=== PATIENT | male | born 2000 | race Two or more races ===

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

== ENCOUNTER 2019-01-16 21:57 | Emergency (ER) | payer MEDICAID ==
[~2019-01-16] VITALS: Ht 180.3 cm; Wt 74.8 kg
[2019-01-16 22:38] VITALS: BP 137/80
--- NOTE | 2019-01-16 22:40 | NUR ---
PT BIB MOTHER C/C LEFT EAR ACHE AND FLU LIKE SYMPTOMS X 2 DAYS. PT C/O DIMINSHED HEARING HEARING IN LEFT EAR. PT AOX4. NAD NOTED. RESP EVEN AND UNLABORED. PT IN BED 12 WITH MOTHER AT BEDSIDE. WILL CONTINUE TO MONITOR.
== END 2019-01-16 23:47 | disposition home or self-care (01) ==
LOC: ER 22:01
DX: J06.9 Acute upper respiratory infection, unspecified (principal); H66.92 Otitis media, unspecified, left ear
CPT/HCPCS: 87804 ×2; 99283; A4606; 87400

== ENCOUNTER 2022-06-14 22:54 | Emergency (ER) | payer MEDICAID, OTHER ==
[~2022-06-14] VITALS: Ht 180.3 cm; Wt 73.9 kg
--- NOTE | 2022-06-15 00:21 | NUR ---
BIBS FOR C/O L ANKLE PAIN S/P HE LANDED ON IT. PT A/OX4. TOLERATING R/A WELL WITH NO SOB; RESP EVEN AND NON LABORED. AMBULATORY. SAFETY MEASURES IN PLACE.
--- NOTE | 2022-06-15 00:54 | NUR ---
[employer] MANA[employer] AT PT'S BEDSIDE
--- NOTE | 2022-06-15 01:15 | NUR ---
DR. THELMA TRUJILLO AT PT'S BEDSIDE FOR WOUND CARE; APPLYING ROBBY WRAP TO LEFT ANKLE
--- NOTE | 2022-06-15 01:25 | NUR ---
Patient discharged to home in stable condition. Written and verbal after care instructions given. Patient verbalizes understanding of instruction. Pt ambulatory with a steady gait with crutches
[2022-06-15 01:26] VITALS: BP 121/71
== END 2022-06-15 01:27 | disposition home or self-care (01) ==
LOC: ER 22:58
DX: S93.492A Sprain of other ligament of left ankle, initial encounter (principal); X50.1XXA Overexertion from prolonged static or awkward postures, initial encounter; Y93.01 Activity, walking, marching and hiking; Y92.89 Other specified places as the place of occurrence of the external cause; Y99.8 Other external cause status
CPT/HCPCS: 73610-TC

== ENCOUNTER 2024-04-02 21:18 | Emergency (ER) | payer OTHER ==
[~2024-04-02] VITALS: Ht 180.3 cm; Wt 78.9 kg
[2024-04-02 22:16] VITALS: BP 158/65; TEMP 98.3; O2SAT 98
[2024-04-03] MEDS ORDERED: IBUP-1955 PO (00:16)
[2024-04-03] MEDS ORDERED: AMOX875T2 PO (00:16)
== END 2024-04-03 00:21 | disposition home or self-care (01) ==
LOC: ER 21:19
DX: H66.92 Otitis media, unspecified, left ear (principal); H92.03 Otalgia, bilateral